=== PATIENT | female | born 1995 | race Caucasian/White ===

== ENCOUNTER 2017-07-09 13:13 | Emergency (ER) | payer BC ==
--- NOTE | 2017-07-09 14:02 | RAD ---
INDICATION: Traumatic fracture right ankle COMPARISON: None TECHNIQUE: AP, lateral, and oblique views were obtained. FINDINGS: There are mildly distracted oblique fracture through the distal fibula. No other fractures are evident. There is lateral soft tissue swelling. IMPRESSION: LATERAL MALLEOLAR FRACTURES
[2017-07-09 15:12] VITALS: BP 141/62
--- NOTE | 2017-07-09 17:25 | ED ---
Lower Extremity - HPI Summary HPI Summary: Patient presents with right ankle pain after rolling the ankle during roller derby approximately 1 hour prior to arrival. She has been unable to ambulate since the accident. There is swelling over the lateral malleolus with no swelling to the medial malleolus. She denies any numbness or tingling. She denies color or temperature changes to the area. She did not injure any other area and denies any other complaints. She is not on blood thinners and has not taken any medication for relief of symptoms. Pain is discretely located over the lateral ankle without involvement of the lower leg superior to the ankle or the foot. Pulses +2 bilaterally. Good blood flow. - History of Current Complaint Chief Complaint: EDExtremityLower Stated Complaint: RT ANKLE PROBLEM Time Seen by Provider: 07/09/17 13:29 Hx Obtained From: Patient Mechanism Of Injury: Twisted Onset of Pain: Minutes Onset/Duration: Minutes Severity Initially: Mild Severity Currently: Mild Pain Intensity: 4 Pain Scale Used: 0-10 Numeric Timing: Constant Location: Is Discrete @ - Left lateral malleolus Character Of Pain: Aching Associated Signs And Symptoms: Positive: Swelling. Negative: Redness, Bruising , Fever, Weakness Aggravating Factor(s): Standing, Ambulation Alleviating Factor(s): Rest, Elevation Able to Bear Weight: No - Risk Factors Gout Risk Factors: Negative DVT Risk Factors: Negative Septic Arthritis Risk Factor: Negative - Allergies/Home Medications Allergies/Adverse Reactions: Allergies Allergy/AdvReac Type Severity Reaction Status Date / Time No Known Allergies Allergy Verified 07/09/17 13:16 PMH/Surg Hx/FS Hx/Imm Hx Previously Healthy: Yes - Immunization History Date of Influenza Vaccine: 04/2017 Hx Pertussis Vaccination: No Immunizations Up to Date: Yes Infectious Disease History: No Infectious Disease History: Denies: Traveled Outside the [place] in Last 30 Days - Social History Occupation: Employed Full-time Lives: With Family Alcohol Use: Weekly Alcohol Amount: 4 Hx Substance Use: No Substance Use Type: Reports: None Hx Tobacco Use: No Smoking Status (MU): Never Smoked Tobacco Review of Systems Constitutional: Negative Negative: Fever, Chills, Fatigue Eyes: Negative Cardiovascular: Negative Respiratory: Negative Genitourinary: Negative Positive: no symptoms reported, see HPI Positive: Arthralgia, Myalgia Skin: Negative Neurological: Negative All Other Systems Reviewed And Are Negative: Yes Physical Exam Triage Information Reviewed: Yes Vital Signs On Initial Exam: Initial Vitals Temp Pulse Resp BP Pulse Ox 98.1 F 91 16 132/67 98 07/09/17 13:16 07/09/17 13:16 07/09/17 13:16 07/09/17 13:16 07/09/17 13:16 Vital Signs Reviewed: Yes Appearance: Positive: Well-Appearing, Well-Nourished Skin: Positive: Warm, Skin Color Reflects Adequate Perfusion Head/Face: Positive: Normal Head/Face Inspection Eyes: Positive: EOMI, THERESA, Conjunctiva Clear Neck: Positive: Supple, No Lymphadenopathy Respiratory/Lung Sounds: Positive: Clear to Auscultation, Breath Sounds Present Cardiovascular: Positive: Normal, RRR, Pulses are Symmetrical in both Upper and Lower Extremities Musculoskeletal: Positive: Normal, Strength/ROM Intact Neurological: Positive: Speech Normal Psychiatric: Positive: Normal, Affect/Mood Appropriate AVPU Assessment: Alert Procedures - Splinting Location: right lateral malleolus Hand-Made Type: plaster Splint: sugar-tong - with short leg splint Diagnostics - Vital Signs Vital Signs Temp Pulse Resp BP Pulse Ox 07/09/17 15:09 98.6 F 91 18 141/62 99 07/09/17 13:16 98.1 F 91 16 132/67 98 - Laboratory Lab Statement: Any lab studies that have been ordered have been reviewed, and results considered in the medical decision making process. Lower Extremity Course/Dx - Course Course Of Treatment: During the course of treatment, x-ray obtained of the right ankle. FINDINGS: There are mildly distracted oblique fracture through the distal fibula. No other. fractures are evident. There is lateral soft tissue swelling. IMPRESSION: LATERAL MALLEOLAR FRACTURES. Neurovascular is exam normal. Patient was placed in a plaster short leg cast with sugar tong. Encouraged ibuprofen 600 mg 3 times daily. She brings crutches with her to the ED. She is to follow-up with orthopedics next week. She will remain nonweightbearing until that time and return for any worsening symptoms. - Diagnoses Provider Diagnoses: Fractured lateral malleolus Discharge - Discharge Plan Condition: Stable Disposition: HOME Patient Education Materials: Ankle Fracture (ED) Referrals: Marsha Ruby MD [Primary Care Provider] - Milad Mobley MD [Medical Doctor] - Additional Instructions: Please follow up with orthopedics Call them tomorrow for an appointment Ibuprofen 600 mg 3 times daily Elevate the leg as much as possible Do not bear any weight Use crutches for ambulation Do not get the splint wet
== END 2017-07-09 15:09 | disposition home or self-care (01) ==
LOC: ED 13:13
DX: S82.891A Other fracture of right lower leg, initial encounter for closed fracture (principal); X50.9XXA Other and unspecified overexertion or strenuous movements or postures, initial encounter; Y93.51 Activity, roller skating (inline) and skateboarding; Y92.9 Unspecified place or not applicable
CPT/HCPCS: 29515; 99282

== ENCOUNTER → 2017-11-16 07:39 | Day surgery (SDC) | payer BC ==
[~2017-11-16 07:39] MED LIST: Buffered Lidocaine 0.9% SYRIN* 5 ML/SYR SYRINGE INTRADERM ONE; Bupivacaine 0.25% SDV* 30 ML ONE; Bupivacaine 0.5% SDV PF* 30ML VIAL ONE; Chloroprocaine 2%* 20 ML VIAL ONE; Dexamethasone TAB* 4 MG ONE; Dexamethasone TAB* 4 MG PO ONE; DiMENhydriNATE IV* 50 MG/ML VIAL IV PUSH PRN; Famotidine IV* 10 MG/ML 2 ML (20 mg) IV ONE; Famotidine IV* 10 MG/ML 2 ML (20 mg) ONE; Famotidine TAB* 20 MG ONE; Ketorolac INJ* 30 MG/ML 1 ML VIAL ONE; Lidocaine 2% PF * 5 ML VIAL ONE; Midazolam* 1 MG/ML 5 ML VIAL (5 MG) ONE; Morphine INJ* 2 MG/ML 1 ML CARPUJECT IV PRN; Naloxone* 0.4 MG/ML 1 ML VIAL IV PRN; Ondansetron INJ* 2 MG/ML VIAL ONE; Ondansetron ODT TAB* 4 MG ONE; PROCHLORPERAZINE INJ 5 MG/ML 2 ML VIAL IV PRN; Propofol* 500 MG/50 ML BTL ONE; Scopolamine 1.5 mg* PATCH TRANSDERM PRN; Scopolamine PATCH Remove* 1 NOTE MISC PATCH OFF ONE; ceFAZolin 2 GM PREMIX (*) 2 GM/50 ML BAG IVPB ONE; fentaNYL* 50 MCG/ML 2 ML VIAL (100 MCG VIAL) IV PRN; fentaNYL* 50 MCG/ML 2 ML VIAL (100 MCG VIAL) ONE; oxyCODONE TAB* 5 MG TAB ONE
--- NOTE | 2017-11-16 11:19 | OP ---
Operative Report - Blank - Operative Report Date of Operation: 11/16/17 Note: PATIENT: Odilia Baugh DATE OF : 1995 DATE OF SURGERY: 11/16/2017 SURGEON: Matthew Durbin MD MANAGER MARKET RESEARCH: MICHAEL Pearson, whos assistance was necessary for positioning, retraction, help with instrumentation, and closure. ANESTHESIOLOGIST: Dr. Bhagat PREOPERATIVE DIAGNOSIS: Right lateral malleolus ankle fracture nonunion POSTOPERATIVE DIAGNOSIS: Right lateral malleolus ankle fracture nonunion OPERATION: Right ankle lateral malleolar fracture nonunion open reduction and internal fixation with iliac crest autogenous bone grafting. ANESTHESIA: Spinal + regional nerve block IMPLANTS: Arthrex lateral malleolar plate TOURNIQUET TIME: Less than 1 hour with a well-padded thigh tourniquet at 250mmHg SPECIMENS: none ESTIMATED BLOOD LOSS: minimal COMPLICATIONS: none STATUS: Stable from the operating room to the recovery room and then home. INDICATIONS FOR PROCEDURE: Odilia sustained a right lateral malleolus fracture that went on to nonunion. Both operative and non operative treatment alternatives were reviewed. Further, the nature and risks of surgery were reviewed in careful detail, in the office as well as the pre-operative holding area. Our discussions regarding the risks of surgery included, but were not limited to, infection, wound problems, nerve injury, neuroma, RSD, persistent symptoms, blood clot, nonunion, malunion, hardware failure, failure of the surgery, and even the remote chance of catastrophic complication, including loss of limb. DESCRIPTION OF PROCEDURE: The patient was seen in the preoperative holding unit and informed written consent was obtained. The appropriate extremity was marked. The patient was then brought to the operating room and carefully positioned on the operating room table. Anesthesia was induced. All bony prominences were padded with great care. A well-padded thigh tourniquet was placed. A chlorhexidine based pre- scrub was performed followed by a chloraprep prep and drape in standard sterile fashion. A surgical safety pause was then conducted in which we confirmed the appropriate patient, extremity, planned procedure, availability of equipment, indication and administration of prophylactic antibiotics, and DVT prophylaxis in the form of a compression boot on the non-surgical extremity. I began with Esmarch exsanguination of the limb and inflated the tourniquet. I then utilized a laterally based incision overlying the distal fibula. Great care was taken to protect the superficial peroneal nerve, which was not visualized within the field of view. I dissected down through the soft tissue layers to expose the distal fibula. There was an obvious nonunion with fibrotic tissue at the fracture site. I was able to easily place a 15 blade through the fracture site. I used a dental pick and curettes to clean out all the fibrotic nonunion tissue. We took the fracture edges back to healthy bleeding bone. Attention was then turned to the right iliac crest which had been previously prepped and draped in a standard fashion. A small amount of Marcaine was placed in the subcutaneous tissues and then also used to anesthetize the periosteum and the soft tissues over the ASIS. Just posterior to the ASIS, a small stab incision using a 15 blade was made. A Jamshidi needle was then advanced being careful to stay centered on the iliac crest. This was advanced slowly and carefully through the superior cortex of the crest between the inner and outer tables of bone. The stylet was removed from the Jamshidi needle during the advancement and multiple cores on bone graft were harvested from the iliac crest. The incision site for the bone graft was then copiously irrigated and closed in layers utilizing 3-0 Monocryl and 3-0 nylon. A sterile dressing was applied. I packed the iliac crest bone graft into the nonunion fracture site at the distal fibula. I placed an Arthrex distal fibula plate laterally and then confirmed the position of the plate fluoroscopically. I placed screws to hold the plate to the bone distally. I then used the oblong hole proximally to provide some compression at the fracture site. Additional screws were drilled, and placed proximally. Final fluoroscopic images were then obtained. At this point, we irrigated and then closed in layers meticulously utilizing 3-0 Monocryl for the deep and subdermal layers and 3-0 nylon for the skin. A sterile dressing was then applied followed by a splint with the ankle in a neutral position. The patient was then awakened from anesthesia and transferred to the recovery room in stable condition. There were no complications. All needle and sponge counts were correct at the end of the case. ATTESTATION: I attest I was present and scrubbed and performed the critical portions of the procedure myself. POSTOPERATIVE PLAN: The postop plan is for [id number] for an anticipated duration of 6 weeks. Follow-up will be in 2 weeks. At that time we will likely transition into a [id number] aircast boot.
[2017-11-16 11:32] VITALS: BP 133/78
--- NOTE | 2017-11-16 17:16 | RAD ---
CPT II Codes: G9500 Indication: Nonunion right distal fibular fracture, traumatic Fluoroscopic services provided for referring physician. Approximately 30 seconds of fluoroscopy time was used. 5 spot image demonstrates internal fixation with a plate and screws of the distal fibula. IMPRESSION: Fluoroscopic services provided for referring physician for internal fixation distal fibula.
== END | disposition home or self-care (01) ==
LOC: OR 07:39
PROVIDERS: ATTEND Orthopaedic Surgery
DX: S82.61XK Displaced fracture of lateral malleolus of right fibula, subsequent encounter for closed fracture with nonunion (principal); E89.0 Postprocedural hypothyroidism; F41.8 Other specified anxiety disorders; Z87.891 Personal history of nicotine dependence; X50.0XXD Overexertion from strenuous movement or load, subsequent encounter; G89.18 Other acute postprocedural pain
CPT/HCPCS: 76001; 81025; A9270-GY; C1713; J0690; J1885; J2250; J2400; J2704; J3010; J8540